=== PATIENT | female | born 1970 | race African-American/Black ===

== ENCOUNTER 2024-07-14 17:06 | Emergency (ER) | payer MEDICARE ==
[~2024-07-14] VITALS: Ht 165.1 cm; Wt 80.6 kg
[2024-07-14 17:41] VITALS: TEMP 98.5
[2024-07-14 21:48] VITALS: BP 130/79; PULSE 96; RESP 16; O2SAT 98
== END 2024-07-14 22:03 | disposition home or self-care (01) ==
LOC: EDBD 17:06 → EMS 17:06
DX: S80.01XA Contusion of right knee, initial encounter (principal); Z91.048 Other nonmedicinal substance allergy status; W06.XXXA Fall from bed, initial encounter; Y93.89 Activity, other specified; Y92.89 Other specified places as the place of occurrence of the external cause; Y99.8 Other external cause status
CPT/HCPCS: 99283